=== PATIENT | female | born 1995 | race Hispanic/Latino ===

== ENCOUNTER 2017-03-25 08:46 | Emergency (ER) | payer OTHER, BC ==
[2017-03-25 09:24] VITALS: RESP 18; TEMP 98.2; O2SAT 99
--- NOTE | 2017-03-25 09:24 | ED PDOC ---
Arrival/HPI - General Chief Complaint: Trauma Time Seen by Provider: 03/25/17 09:24 Historian: Patient, Parent (mother) - History of Present Illness Narrative History of Present Illness (Text): 03/25/17 09:24 This 21 yo female who denies pmh presents to this ED c/o right anterior knee pain x [employer]. Patient stated she tripped and fell down a couple steps at work. She stated she heard a "popping" sound as she was falling. She said she landed on her right knee. Patient denies ankle pain, hip pain, dizziness, head injury , syncope, calf pain, or other somatic changes. Time/Duration: Prior to Arrival Context: Work Past Medical History - Provider Review Nursing Documentation Reviewed: Yes - Infectious Disease Hx of Infectious Diseases: None - Psychiatric Hx Substance Use: No Family/Social History - Physician Review Nursing Documentation Reviewed: Yes Family/Social History: Other (noncontributory) Smoking Status: Never Smoked Hx Alcohol Use: No Hx Substance Use: No Allergies/Home Meds Allergies/Adverse Reactions: Allergies No Known Allergies Allergy (Verified 03/25/17 09:23) Review of Systems - Review of Systems Constitutional: Normal. absent: Fatigue, Weight Change, Fevers Eyes: Normal. absent: Vision Changes ENT: Normal Respiratory: Normal Cardiovascular: Normal Gastrointestinal: Normal. absent: Abdominal Pain, Nausea, Vomiting Genitourinary Female: Normal. absent: Dysuria, Frequency, Hematuria, Vaginal Bleeding, Vaginal Discharge Musculoskeletal: Other (right knee pain and swelling). absent: Back Pain, Neck Pain Skin: Normal Neurological: Normal. absent: Headache, Dizziness, Focal Weakness, Gait Changes , Speech Changes, Facial Droop, Disequilibrium, Seizure Endocrine: Normal Hemo/Lymphatic: Normal Psychiatric: Normal Physical Exam Vital Signs Temp Pulse Resp BP Pulse Ox 03/25/17 09:21 98.2 F 110 H 18 159/90 H 99 Temperature: Afebrile Blood Pressure: Normal Pulse: Regular Respiratory Rate: Normal Appearance: Positive for: Well-Appearing, Non-Toxic, Comfortable Pain Distress: None Mental Status: Positive for: Alert and Oriented X 3 - Systems Exam Head: Present: Atraumatic, Normocephalic, Other (no raccoon sign. no burciaga sign) Pupils: Present: PERRL, Other (no hyphema) Extroacular Muscles: Present: EOMI Conjunctiva: Present: Normal Ears: Present: Normal, Other (no hemotympanum) Mouth: Present: Moist Mucous Membranes Neck: Present: Normal Range of Motion, Trachea Midline. No: Meningeal Signs, MIDLINE TENDERNESS, Paraspinal Tenderness Respiratory/Chest: No: Tender to Palpation Abdomen: No: Tenderness Back: Present: Normal Inspection. No: CVA Tenderness Upper Extremity: Present: Normal Inspection, Normal ROM, NORMAL PULSES, Neurovascularly Intact, Capillary Refill < 2s. No: Cyanosis, Edema, Tenderness Lower Extremity: Present: NORMAL PULSES, Neurovascularly Intact, Capillary Refill < 2 s, Other ((+) right anterior knee joint is mild swelling and tender when knee joint is flex over 90 degrees. Anterior and posterior drawer test on both knees were negative. No valgus or varus. No posterior ankle pain. No calf tenderness. Layton test is negative. No hip tenderness). No: Edema, CALF TENDERNESS, Cyanosis, Erythema, Deformity, Temperature Abnormalties Neurological: Present: GCS=15, CN II-XII Intact, Speech Normal, Motor Func Grossly Intact, Normal Cerebellar Funct, Gait Normal, Memory Normal Skin: Present: Warm, Dry, Normal Color. No: Rashes Psychiatric: Present: Alert, Oriented x 3, Normal Insight, Normal Concentration Medical Decision Making ED Course and Treatment: 03/25/17 10:40 Re-evaluation. Patient feels better. Discussed results and plan with patient and mother who expresses understanding. All questions answered and there is agreement with the plan to discharge home with instructions. Patient stable for discharge. Return if symptoms persist or worsen. Re-evaluation Time: 10:40 Reassessment Condition: Re-examined, Improved - RAD Interpretation Narrative RAD Interpretations (Text): 03/25/17 10:40 Knee x-rays: Negative Radiology Orders: 03/25/17 09:26 KNEE W PATELLA RIGHT 3 VIEW [RAD] Stat - Medication Orders Current Medication Orders: Discontinued Medications Ibuprofen (Motrin Tab) 600 mg PO STAT STA Stop: 03/25/17 09:28 Last Admin: 03/25/17 09:52 Dose: 600 mg MAR Pain/Vitals Document 03/25/17 09:52 SE (Rec: 03/25/17 09:53 SE [id number]) Pain Reassessment Is This A Pain ReAssessment? No Sleep Is patient sleeping during reassessment? No Presence of Pain Presence of Pain Yes Pain Scale Used Pain Scale Used Numeric - Procedure PROCEDURE NOTE (Text): 03/25/17 10:40 Knee immobilizer was applied by senior cytogenetic technologist Disposition/Present on Arrival - Present on Arrival Any Indicators Present on Arrival: No History of DVT/PE: No History of Uncontrolled Diabetes: No Urinary Catheter: No History of Decub. Ulcer: No History Surgical Site Infection Following: None - Disposition Have Diagnosis and Disposition been Completed?: Yes Diagnosis: Knee pain, right Disposition: HOME/ ROUTINE Disposition Time: 10:41 Patient Plan: Discharge Patient Problems: Current Active Problems Problem Status Onset Knee pain, right Acute Condition: GOOD Discharge Instructions (ExitCare): Knee Pain (ED) Additional Instructions: Call private doctor for follow up visit in 3-5 days. Call orthopedist if knee pain persist or worsen. Keep knee elevated, ice, rest, knee immobilizer, and crutches till pain improves. no sport or gym till clear by your doctor. Return to emergency if knee pain worsen. Prescriptions: Famotidine [Pepcid] 40 mg PO DAILY #10 tablet Ibuprofen [Motrin] 600 mg PO Q8 PRN #20 tab PRN Reason: Pain, Severe (8-10) Referrals: Nba Siegel MD [Primary Care Provider] - Follow up with primary Sin Garcia DO [Staff Provider] - Follow up with primary Forms: [facility] (Setswana), WORK NOTE
[2017-03-25 11:14] VITALS: BP 128/71; PULSE 88
--- NOTE | 2017-03-25 13:44 | RAD ---
PROCEDURE: Right Knee Radiographs. HISTORY: pain COMPARISON: None. FINDINGS: BONES: Normal. No fracture. JOINTS: Normal. No osteoarthritis. JOINT EFFUSION: Small -medium-sized suprapatellar joint effusion OTHER FINDINGS: None. IMPRESSION: No evidence of acute displaced fracture nor dislocation. Small to medium size suprapatellar joint effusion.
== END 2017-03-25 11:14 | disposition home or self-care (01) ==
LOC: ED 08:46
DX: M25.561 Pain in right knee (principal)